=== PATIENT | female | born 2000 | race Caucasian/White ===

== ENCOUNTER 2021-07-02 09:44 | Outpatient (CLI) | payer OTHER | END 2021-07-02 09:45 | disposition home or self-care (01) | LOC: BICRAD 09:44 | PROVIDERS: ATTEND Physician Assistant | DX: M54.41 Lumbago with sciatica, right side (principal); V89.2XXD Person injured in unspecified motor-vehicle accident, traffic, subsequent encounter; M41.9 Scoliosis, unspecified | CPT/HCPCS: 72100; 72170 ==